=== PATIENT | female | born 1985 | race Caucasian/White ===

== ENCOUNTER → 2016-07-18 | Outpatient (CLI) | payer BC ==
--- NOTE | 2016-07-18 16:14 | US ---
EXAMINATION: Limited left breast ultrasound HISTORY: Disorder of skin COMPARISON: None TECHNIQUE: Grayscale images obtained within the upper outer left breast within the region of concern . FINDINGS: There is no abnormal mass, skin thickening or abnormal fluid collection identified. Normal -appearing subcutaneous tissues are noted. IMPRESSION: No sonographic abnormality identified within the region of concern. Please follow-up cli nically.
== END ==
LOC: MW.US 12:52
PROVIDERS: ATTEND Physician Assistant
DX: Z87.2 Personal history of diseases of the skin and subcutaneous tissue (principal)
CPT/HCPCS: 76642-LT; 76642-LT-26